=== PATIENT | male | born 1985 | race African-American/Black ===

== ENCOUNTER 2020-02-16 02:55 | Inpatient (IN) ==
[2020-02-16] MEDS ORDERED: SODIUM CHLORIDE 0.9% 500 ML IV STA (03:59)
[2020-02-16] MEDS ORDERED: cefTRIAXone 2,000 MG in SODIUM CHLORIDE 0.9% 100 ML IV STA (04:01)
[2020-02-16] MEDS ORDERED: DEXTROSE 50% 25 GM/50 ML VIAL IV STA (04:02)
[2020-02-16] MEDS ORDERED: DEXTROSE 50% 25 GM/50 ML SYRINGE IV ONE (04:07)
[2020-02-16] MEDS ORDERED: VANCOMYCIN 1,000 MG VIAL ONE (04:07)
[2020-02-16 04:09] LABS: Basophils % 0.2 % (0.0-0.8); Eosinophils % 0.1 % (0.00-10.9); Hematocrit 44.4 VOL% (42.0-52.0); Hemoglobin 15.6 GM/DL (14.0-18.0); Immature Granulocytes % 0.5 %; Immature Granulocytes Absolute 0.05 #; Lymphocytes # 1.1 10*3/uL (1.4-4.0); Lymphocytes % 9.7 % (21.2-54.2); Mean Corpuscular HGB Conc 35.1 GM/DL (32-36); Mean Corpuscular Volume 93.1 FL (87-102); Mean Platelet Volume 9.7 FL (9.6-12.0); Monocytes % 10.1 % (1.7-12.7); Neutrophils % 79.4 % (38.7-73.9); Platelet Count 248 T/CUMM (130-400); Red Blood Count 4.77 MC/CUMM (3.8-5.5); Red Cell Distribution Width 11.8 % (9.3-17.3)
[2020-02-16 04:17] LABS: INR 1.1; PT Patient Result 11.6 SECS (9.8-11.9)
[2020-02-16] MEDS ORDERED: VANCOMYCIN INJ 1,000 MG in SODIUM CHLORIDE 0.9% 250 ML IV STA (04:19)
[2020-02-16 04:36] LABS: ABG Base Excess -0.5 MMOL/L (-2.5-2.5); ABG PCO2 27.4 MM HG (35-48); ABG PH 7.503 (7.35-7.45); ABG TCO2 21.9 MMOL/L (23-27)
[2020-02-16] MEDS ORDERED: ACETAMINOPHEN 650 MG SUPP RECTAL STA (04:36)
[2020-02-16 04:38] LABS: Apearance,Urine CLEAR (Clear); Bilirubin,Urine Negative (Negative); Blood, Urine Moderate mg/dL (Negative); Glucose,Urine (UA) Negative (Negative); Ketones,Urine 20 mg/dL (Negative); Nitrite,Urine Negative (Negative); Protein,Urine Negative; RBC,Urine 1 /HPF (0-4); Urine Color Colorless (Yellow); Urine Specific Gravity 1.004 (1.001-1.035); Urine Urobilinogen < 2.0 EU/DL (0.2-1.0); WBC,Urine 1 /HPF (0-6)
[2020-02-16 05:09] LABS: Alanine Aminotransferase 30 U/L (16-61); Albumin 4.2 G/DL (3.4-5.0); Alkaline Phosphatase 59 U/L (45-117); Aspartate Amino Transferase 136 U/L (0-37); Blood Urea Nitrogen 12 MG/DL (7-18); Calcium 9.2 MG/DL (8.5-10.1); Estimated Glom Filtration Rate 123 ML/MIN; Glucose 69 MG/DL (74-106); Osmolality,Calculated 241.1 MOS/KG (273-304); Total Protein 8.1 G/DL (6.4-8.3)
[2020-02-16] MEDS ORDERED: ACYCLOVIR INJ 500 MG in SODIUM CHLORIDE 0.9% 100 ML IV STA (05:22)
[2020-02-16] MEDS ORDERED: BICILLIN LA 2,400,000 UNIT/4 ML SYRINGE IM STA (05:22)
[2020-02-16 05:47] LABS: Barbiturates Screen,Urine Negative (Negative); Benzodiazepines Screen,Urine Negative (Negative); Cannabinoid Screen,Urine Negative (Negative); Opiate Screen,Urine Negative (Negative); Phencyclidine Screen,Urine Negative (Negative)
[2020-02-16 05:58] LABS: Appearance,CSF Clear; Lymphocytes,CSF 17 %; Neutrophils,CSF 50 %; Red Blood Cell,CSF 1052 C/CUMM; White Blood Cell,CSF 5 C/CUMM
[2020-02-16 05:59] LABS: Monocytes,CSF 33 %
[2020-02-16] MEDS ORDERED: DEXAMETHASONE 10 MG/1 ML VIAL ONE (06:01)
[2020-02-16] MEDS: SODIUM CHLORIDE 0.9% 1,000 ML IV SCH ×3 (06:19→22:00)
[2020-02-16] MEDS ORDERED: DEXAMETHASONE 10 MG/1 ML VIAL IV ONE (06:30)
[2020-02-16 07:29] LABS: RPR Confirm - Less than 1 yr REACTIVE (Nonreactive)
[2020-02-16] MEDS ORDERED: HYDROCORTISONE 100 MG VIAL IV STA (08:18)
[2020-02-16] MEDS ORDERED: DEXTROSE 50% 25 GM/50 ML VIAL IV PRN (08:21)
[2020-02-16] MEDS ORDERED: GLUCAGON 1 MG VIAL IM PRN (08:21)
[2020-02-16] MEDS ORDERED: ONDANSETRON 4 MG/2 ML VIAL IV PRN (08:56)
[2020-02-16] MEDS ORDERED: DEXAMETHASONE INJ 10 MG in SODIUM CHLORIDE 0.9% 50 ML IV SCH (09:00)
[2020-02-16] MEDS ORDERED: INSULIN LISPRO 100 UNIT/ML SUBCUT SCH (10:00)
[2020-02-16] MEDS: ENOXAPARIN 40 MG/0.4 ML SYRINGE SUBCUT SCH (10:40)
[2020-02-16] MEDS: ACYCLOVIR INJ 600 MG in SODIUM CHLORIDE 0.9% 100 ML IV SCH ×2 (16:00→21:50)
[2020-02-16] MEDS: HYDROCORTISONE 100 MG VIAL IV SCH ×2 (16:00→21:50)
[2020-02-16] MEDS: SODIUM CHLORIDE 3% INJ 500 ML IV SCH (16:00)
[2020-02-16] MEDS: cefTRIAXone 2,000 MG in SYRINGE 1 EACH IV SCH (16:10)
[2020-02-16] MEDS: VANCOMYCIN INJ 1,000 MG in SODIUM CHLORIDE 0.9% 250 ML IV SCH (16:10)
[2020-02-16 20:23] LABS: HIV Antigen/Antibody Result Nonreactive (Nonreactive)
[2020-02-16] MEDS: INSULIN LISPRO 100 UNIT/ML SUBCUT SCH ×2 (21:22→22:03)
[2020-02-17] MEDS: INSULIN LISPRO 100 UNIT/ML SUBCUT SCH ×5 (01:00→20:59)
[2020-02-17 02:27] LABS: Basophils % 0.1 % (0.0-0.8); Hematocrit 42.5 VOL% (42.0-52.0); Immature Granulocytes % 0.5 %; Immature Granulocytes Absolute 0.06 #; Lymphocytes # 1.1 10*3/uL (1.4-4.0); Lymphocytes % 9.6 % (21.2-54.2); Mean Corpuscular HGB Conc 32.9 GM/DL (32-36); Mean Corpuscular Volume 99.8 FL (87-102); Mean Platelet Volume 10.5 FL (9.6-12.0); Monocytes % 11.9 % (1.7-12.7); Neutrophils % 77.9 % (38.7-73.9); Platelet Count 171 T/CUMM (130-400); Red Blood Count 4.26 MC/CUMM (3.8-5.5); Red Cell Distribution Width 12.5 % (9.3-17.3); White Blood Count 11.6 T/CUMM (4-12)
[2020-02-17 02:40] LABS: INR 2.8
[2020-02-17 02:41] LABS: PT Patient Result 28.8 SECS (9.8-11.9)
[2020-02-17 02:47] LABS: Calcium 8.7 MG/DL (8.5-10.1); Osmolality,Calculated 266.2 MOS/KG (273-304)
[2020-02-17] MEDS: cefTRIAXone 2,000 MG in SYRINGE 1 EACH IV SCH ×2 (04:30→17:12)
[2020-02-17] MEDS: VANCOMYCIN INJ 1,000 MG in SODIUM CHLORIDE 0.9% 250 ML IV SCH ×2 (05:00→17:12)
[2020-02-17] MEDS: SODIUM CHLORIDE 3% INJ 500 ML IV SCH (05:02)
[2020-02-17] MEDS: HYDROCORTISONE 100 MG VIAL IV SCH ×3 (06:10→20:59)
[2020-02-17] MEDS: ACYCLOVIR INJ 600 MG in SODIUM CHLORIDE 0.9% 100 ML IV SCH ×3 (06:29→22:05)
[2020-02-17] MEDS: SODIUM CHLORIDE 0.9% 1,000 ML IV SCH (06:30)
[2020-02-17] MEDS ORDERED: HALOPERIDOL 5 MG/ML AMP IM PRN (12:00)
[2020-02-17] MEDS: DEXTROSE 5% LACTATED RINGERS 1,000 ML IV SCH ×2 (12:00→20:30)
[2020-02-17] MEDS: HALOPERIDOL 5 MG/ML AMP IM SCH ×2 (12:30→20:30)
[2020-02-17] MEDS: ENOXAPARIN 40 MG/0.4 ML SYRINGE SUBCUT SCH (17:11)
[2020-02-18] MEDS: INSULIN LISPRO 100 UNIT/ML SUBCUT SCH ×6 (00:46→20:55)
[2020-02-18] MEDS: HALOPERIDOL 5 MG/ML AMP IM SCH ×2 (01:30→07:50)
[2020-02-18] MEDS: DEXTROSE 5% LACTATED RINGERS 1,000 ML IV SCH ×3 (04:20→19:39)
[2020-02-18] MEDS: cefTRIAXone 2,000 MG in SYRINGE 1 EACH IV SCH ×2 (05:05→15:53)
[2020-02-18] MEDS: HYDROCORTISONE 100 MG VIAL IV SCH ×3 (05:05→20:18)
[2020-02-18] MEDS: VANCOMYCIN INJ 1,000 MG in SODIUM CHLORIDE 0.9% 250 ML IV SCH (05:15)
[2020-02-18] MEDS: ACYCLOVIR INJ 600 MG in SODIUM CHLORIDE 0.9% 100 ML IV SCH ×3 (05:45→22:51)
[2020-02-18] MEDS: ENOXAPARIN 40 MG/0.4 ML SYRINGE SUBCUT SCH (07:50)
[2020-02-18] MEDS ORDERED: HALOPERIDOL 5 MG/ML AMP IM PRN (07:53)
[2020-02-18 08:08] LABS: Basophils % 0.2 % (0.0-0.8); Eosinophils % 0.1 % (0.00-10.9); Hematocrit 37.4 VOL% (42.0-52.0); Hemoglobin 12.9 GM/DL (14.0-18.0); Immature Granulocytes % 0.3 %; Immature Granulocytes Absolute 0.03 #; Lymphocytes # 1.8 10*3/uL (1.4-4.0); Lymphocytes % 16.5 % (21.2-54.2); Mean Corpuscular HGB Conc 34.5 GM/DL (32-36); Mean Corpuscular Volume 95.7 FL (87-102); Mean Platelet Volume 9.8 FL (9.6-12.0); Monocytes % 11.4 % (1.7-12.7); Neutrophils % 71.5 % (38.7-73.9); Platelet Count 189 T/CUMM (130-400); Red Blood Count 3.91 MC/CUMM (3.8-5.5); Red Cell Distribution Width 12.5 % (9.3-17.3); White Blood Count 10.7 T/CUMM (4-12)
[2020-02-18 08:24] LABS: Calcium 8.6 MG/DL (8.5-10.1); Osmolality,Calculated 269.8 MOS/KG (273-304)
[2020-02-18] MEDS: QUEtiapine 100 MG TABLET PO SCH ×2 (12:06→20:55)
[2020-02-19] MEDS: INSULIN LISPRO 100 UNIT/ML SUBCUT SCH ×5 (00:07→20:51)
[2020-02-19] MEDS: cefTRIAXone 2,000 MG in SYRINGE 1 EACH IV SCH (04:29)
[2020-02-19] MEDS: DEXTROSE 5% LACTATED RINGERS 1,000 ML IV SCH ×3 (04:30→20:51)
[2020-02-19] MEDS: HYDROCORTISONE 100 MG VIAL IV SCH ×2 (04:30→12:30)
[2020-02-19] MEDS: ACYCLOVIR INJ 600 MG in SODIUM CHLORIDE 0.9% 100 ML IV SCH ×3 (06:00→22:05)
[2020-02-19] MEDS ORDERED: HYDROCORTISONE 100 MG VIAL IV SCH (08:00)
[2020-02-19] MEDS: ENOXAPARIN 40 MG/0.4 ML SYRINGE SUBCUT SCH (10:30)
[2020-02-19] MEDS: AMOXICILLIN/CLAV 500 MG TABLET PO SCH ×2 (11:00→20:51)
[2020-02-19] MEDS: QUEtiapine 100 MG TABLET PO SCH ×2 (11:00→20:51)
[2020-02-20] MEDS ORDERED: SODIUM BICARBONATE 50 MEQ/50 ML VIAL IV ONE (01:03)
[2020-02-20] MEDS: INSULIN LISPRO 100 UNIT/ML SUBCUT SCH ×6 (01:42→21:53)
[2020-02-20] MEDS: HYDROCORTISONE 100 MG VIAL IV SCH ×2 (02:57→12:24)
[2020-02-20] MEDS: DEXTROSE 5% LACTATED RINGERS 1,000 ML IV SCH ×3 (05:14→21:53)
[2020-02-20] MEDS: ACYCLOVIR INJ 600 MG in SODIUM CHLORIDE 0.9% 100 ML IV SCH ×3 (05:14→21:40)
[2020-02-20 05:27] LABS: Basophils % 0.4 % (0.0-0.8); Eosinophils % 0.4 % (0.00-10.9); Hematocrit 39.4 VOL% (42.0-52.0); Hemoglobin 13.1 GM/DL (14.0-18.0); Immature Granulocytes % 0.2 %; Immature Granulocytes Absolute 0.01 #; Lymphocytes # 1.3 10*3/uL (1.4-4.0); Mean Corpuscular HGB Conc 33.2 GM/DL (32-36); Mean Corpuscular Volume 99.2 FL (87-102); Mean Platelet Volume 9.6 FL (9.6-12.0); Monocytes % 13.2 % (1.7-12.7); Neutrophils % 59.8 % (38.7-73.9); Platelet Count 224 T/CUMM (130-400); Red Blood Count 3.97 MC/CUMM (3.8-5.5); Red Cell Distribution Width 12.3 % (9.3-17.3); White Blood Count 5.2 T/CUMM (4-12)
[2020-02-20 05:37] LABS: Calcium 8.9 MG/DL (8.5-10.1); Osmolality,Calculated 278.4 MOS/KG (273-304)
[2020-02-20] MEDS: AMOXICILLIN/CLAV 500 MG TABLET PO SCH ×2 (09:06→21:53)
[2020-02-20] MEDS: QUEtiapine 100 MG TABLET PO SCH ×2 (09:06→21:53)
[2020-02-20] MEDS: ENOXAPARIN 40 MG/0.4 ML SYRINGE SUBCUT SCH (09:06)
[2020-02-21] MEDS: INSULIN LISPRO 100 UNIT/ML SUBCUT SCH ×3 (01:05→07:49)
[2020-02-21] MEDS: DEXTROSE 5% LACTATED RINGERS 1,000 ML IV SCH ×2 (04:05→05:45)
[2020-02-21] MEDS: ACYCLOVIR INJ 600 MG in SODIUM CHLORIDE 0.9% 100 ML IV SCH ×3 (05:30→21:01)
[2020-02-21] MEDS: ENOXAPARIN 40 MG/0.4 ML SYRINGE SUBCUT SCH (08:17)
[2020-02-21] MEDS: AMOXICILLIN/CLAV 500 MG TABLET PO SCH ×2 (08:18→21:01)
[2020-02-21] MEDS: QUEtiapine 100 MG TABLET PO SCH ×2 (08:18→21:01)
[2020-02-21 11:59] LABS: Osmolality,Calculated 280.1 MOS/KG (273-304)
[2020-02-21 12:34] LABS: INR 0.9; PT Patient Result 10.1 SECS (9.8-11.9)
[2020-02-22] MEDS: ACYCLOVIR INJ 600 MG in SODIUM CHLORIDE 0.9% 100 ML IV SCH ×3 (05:20→21:20)
[2020-02-22] MEDS: QUEtiapine 100 MG TABLET PO SCH ×2 (07:59→21:21)
[2020-02-22] MEDS: ENOXAPARIN 40 MG/0.4 ML SYRINGE SUBCUT SCH (07:59)
[2020-02-22] MEDS: AMOXICILLIN/CLAV 500 MG TABLET PO SCH ×2 (07:59→21:21)
[2020-02-23] MEDS: ACYCLOVIR INJ 600 MG in SODIUM CHLORIDE 0.9% 100 ML IV SCH ×3 (05:51→21:12)
[2020-02-23 07:03] LABS: Basophils # 0.1 10*3/uL (0.0-0.2); Basophils % 0.5 % (0.0-0.8); Eosinophils # 0.3 10*3/uL (0.0-0.87); Eosinophils % 2.9 % (0.00-10.9); Hematocrit 40.7 VOL% (42.0-52.0); Hemoglobin 13.6 GM/DL (14.0-18.0); Immature Granulocytes % 2.2 %; Lymphocytes # 2.6 10*3/uL (1.4-4.0); Lymphocytes % 28.3 % (21.2-54.2); Mean Corpuscular HGB Conc 33.4 GM/DL (32-36); Mean Corpuscular Volume 98.8 FL (87-102); Mean Platelet Volume 9.1 FL (9.6-12.0); Monocytes % 8.8 % (1.7-12.7); Neutrophils % 57.3 % (38.7-73.9); Platelet Count 248 T/CUMM (130-400); Red Blood Count 4.12 MC/CUMM (3.8-5.5); Red Cell Distribution Width 12.9 % (9.3-17.3); White Blood Count 9.2 T/CUMM (4-12)
[2020-02-23 07:18] LABS: Calcium 8.9 MG/DL (8.5-10.1); Osmolality,Calculated 272.8 MOS/KG (273-304)
[2020-02-23] MEDS: AMOXICILLIN/CLAV 500 MG TABLET PO SCH ×2 (09:32→21:13)
[2020-02-23] MEDS: ENOXAPARIN 40 MG/0.4 ML SYRINGE SUBCUT SCH (09:32)
[2020-02-23] MEDS: QUEtiapine 100 MG TABLET PO SCH ×2 (09:32→21:13)
[2020-02-24] MEDS: ACYCLOVIR INJ 600 MG in SODIUM CHLORIDE 0.9% 100 ML IV SCH (05:19)
[2020-02-24] MEDS: ENOXAPARIN 40 MG/0.4 ML SYRINGE SUBCUT SCH (08:29)
[2020-02-24] MEDS: QUEtiapine 100 MG TABLET PO SCH (08:30)
[2020-02-24] MEDS ORDERED: NEOMYCIN/POLYMYXIN/HC OTIC SOLN 10 ML BOTTLE BOTH EARS ONE (11:46)
[2020-02-24 12:54] VITALS: BP 106/64
== END 2020-02-24 15:00 | DRG 98 ==
LOC: EDUNIT# → EDBD → N.ED 02:55 → N.EDINP 08:16 → SUATTDRO 08:16 → N.ICU 10:20 → N.3W 02-22 10:30
PROVIDERS: ADMIT Internal Medicine; ATTEND Emergency Medicine